=== PATIENT | male | born 1990 ===

== ENCOUNTER 2024-12-01 04:07 | Emergency (ER) | payer MEDICAID, SELFPAY ==
[2024-12-01 04:17] VITALS: BP 120/64; BP 140/72; PULSE 74; PULSE 75; RESP 28; TEMP 36.3; O2SAT 95; O2SAT 96; BMI 27.2
--- NOTE | 2024-12-01 04:50 | PC.NURSE ---
Pt asleep and snoring on arrival. Pt woke when attempting to get bloodwork, unable to give name and started crying and then went back to sleep.
--- NOTE | 2024-12-01 05:49 | PC.NURSE ---
This RN attempted to draw labwork x 2 and another RN attempted x2 to draw lab work unsuccessfully.
--- NOTE | 2024-12-01 06:40 | PC.NURSE ---
Security to bedside to search patient. Pt very tearful upon waking and then went right back to sleep.
[2024-12-01 06:48] VITALS: BP 96/41; PULSE 56; RESP 18; TEMP 36.2; O2SAT 97
--- NOTE | 2024-12-01 07:10 | PC.NURSE ---
Unable to complete CIWA as pt is uncooperative, not answering questions or pt is crying and unable to understand answers.
--- NOTE | 2024-12-01 07:22 | ED_ITS ---
HPI - Alcohol General Chief Complaint: ETOH/Substance Use Stated Complaint: ETOH / substance abuse / vomiting Time Seen by Provider: 12/01/24 07:08 History of Present Illness HPI narrative: Patient appears to be a young male found on the side of the street. Was crying when EMS arrived. Had some vomiting earlier. Now is sleeping. Patient refused to answer questions earlier admits to using alcohol. PD found heroin and cocaine in his pocket. Sent to the ED for further evaluation Related Data Allergies Allergy/AdvReac Type Severity Reaction Status Date / Time Unable to Assess Allergy Verified 12/01/24 04:24 Review of Systems 2 Review of Systems: Unable to obtain review of systems [facility] Social History Social History Unable to assess alcohol history related to: Unknown Use of substances other than those prescribed or required for medical reasons: Unknown Advance Directives: No Advance Directives Information Provided: Yes Physical Exam ED Exam Exam: Appearance: Sleeping localizes the pain snoring Eyes: Pupils equal, round and reactive to light. ENT: Pharynx normal. Neck: Normal inspection. Neck supple. No lymph nodes noted. No crepitus CVS: Normal heart rate and rhythm. Pulses normal. Normal S1 and S2 Respiratory: No respiratory distress. Breath sounds normal. No Wheezing. No rales Abdomen: Soft and nontender. No rigidity. No distention. good BS x4 Skin: Skin warm and dry. Normal skin color. Normal skin turgor. Extremities: No lower extremity edema. Neurovascular intact to all extremities. No Lacerations. No Rash Neuro: Sleeping refused to answer questions moving all extremities localizes to pain Vital Signs: Vital Signs - 24 hr 12/01/24 04:17 12/01/24 06:48 Temperature 97.4 F 97.2 F Pulse Rate 74 56 Respiratory Rate 28 H 18 Blood Pressure 120/64 96/41 L Pulse Oximetry 96 97 Oxygen Delivery Method Room Air Room Air BMI result Body Mass Index 27.2 Medical Decision Making Medical Decision Making MDM Narrative: Patient in the morning is now awake alert no distress. He is not suicidal not homicidal. Had a large breakfast ambulated we got him registered. Admits to using heroin and cocaine. Explained to patient that the heroin could be a mixture of multitude of substances. Patient will require follow-up on an outpatient Patient did not want detox at this time. Differential Diagnosis Differential Diagnoses: The differential diagnosis associated with the presentation includes Admission/Observation Consideration of admission/observation: Escalation of care including admission/observation considered Lab Data MDM Lab Attestation statement: I reviewed the patient's lab results. 12/01/24 09:05 12/01/24 09:05 Labs: Lab Results 12/01/24 Range/Units 09:05 WBC 8.7 (4.8-10.8) X10*3/uL RBC 4.65 (4.60-5.80) X10*6/uL Hgb 13.7 L (14.0-18.0) g/dl Hct 38.3 L (42.0-52.0) % MCV 82.4 (80.0-98.0) fL MCH 29.5 (27.0-33.0) pg MCHC 35.8 (31.0-36.0) g/dl RDW 12.2 (11.0-16.0) % Plt Count 236 (160-400) X10*3/uL MPV 10.3 (9.4-12.4) fL Immature Gran % (Auto) 0.5 H (0.0-0.4) % Neut % (Auto) 71.5 (45-73) % Lymph % (Auto) 15.3 L (20-40) % Knox % (Auto) 12.4 H (2-11) % Eos % (Auto) 0.2 (0-4) % Baso % (Auto) 0.1 (0-2) % Lymph # (Auto) 1.3 (1.2-4.9) X10*3/uL Knox # (Auto) 1.1 (0.1-1.2) X10*3/uL Eos # (Auto) 0.0 (0.0-0.4) X10*3/uL Baso # (Auto) 0.0 (0.0-0.2) X10*3/uL Abs Immat Gran (auto) 0.04 H (0.00-0.03) X10*3/uL Absolute Neuts (auto) 6.2 (2.0-8.3) x10*3/uL Absolute Nucleated RBC 0.000 (0.0-0.012) X10*3/uL Nucleated RBC % (auto) 0.0 (0.0-0.2) /100WBC Sodium 138 (135-145) mmol/L Potassium 3.9 (3.3-5.1) mmol/L Chloride 101 (96-108) mmol/L Carbon Dioxide 28 (22-29) mmol/L Anion Gap 13 (12-20) BUN 10 (9-16) mg/dL Creatinine 0.53 (0.5-1.4) mg/dL Estim Creat Clear Calc 209.1 Estimated GFR > 60 Random Glucose 118 H (60-115) mg/dL Calcium 8.1 L (8.4-10.2) mg/dL Total Bilirubin 1.7 H (0.0-1.0) mg/dL AST 270 H (5-37) U/L ALT 151 H (0-40) U/L Alkaline Phosphatase 111 (39-117) U/L Total Protein 7.4 (6.5-8.0) g/dL Albumin 3.8 (3.5-5.0) g/dL Salicylates < 5.0 L (15-30) mg/dL Acetaminophen < 3 (<30) mcg/mL Ethyl Alcohol < 10 mg/dL Social Determinants Patient?s care significantly limited by Social Determinants of Health including: Low income, Alcoholism and drug addiction in family and Problems related to primary support group Discharge Plan Discharge Clinical Impression: Cocaine abuse, Heroin abuse Patient Disposition: Home, Self-Care Instructions: Cocaine Use Disorder (ED), Opioid Use Disorder (ED) Referrals: Physician,Ian J [Primary Care Provider, Medical] Referral Note: Please go to detox Print Language: Turkmen
--- NOTE | 2024-12-01 08:52 | PC.NURSE ---
this nurse took report this morning from sa[facility]ia, pt sleeping, wakes to stimulus, rr equal/non labored- lungs clear/diminished, refusing to divulge his name/, pt difficult stick- provider wishes day shift to attempt again prior to calling phlebotomy. plan of care ongoing
[2024-12-01 09:09] LABS: MANUAL DIFF FLAG NO
[2024-12-01 09:24] LABS: Hematocrit 38.3 % (42.0-52.0); Hemoglobin 13.7 g/dl (14.0-18.0); Imm Gran Abs Auto 0.04 X10*3/uL (0.00-0.03); Imm Gran Pct Auto 0.5 % (0.0-0.4); Lymphocytes Absolute Auto 1.3 X10*3/uL (1.2-4.9); Mean Corpuscular HGB Conc 35.8 g/dl (31.0-36.0); Mean Corpuscular Hemoglobin 29.5 pg (27.0-33.0); Mean Corpuscular Volume 82.4 fL (80.0-98.0); NRBC Abs Auto 0.000 X10*3/uL (0.0-0.012); NRBC Pct Auto 0.0 /100WBC (0.0-0.2); Platelet Count 236 X10*3/uL (160-400); Red Blood Count 4.65 X10*6/uL (4.60-5.80); White Blood Count 8.7 X10*3/uL (4.8-10.8)
[2024-12-01 09:33] LABS: Alanine Aminotransferase 151 U/L (0-40); Albumin Level 3.8 g/dL (3.5-5.0); Alkaline Phosphatase 111 U/L (39-117); Anion Gap 13 (12-20); Aspartate Amino Transferase 270 U/L (5-37); Blood Urea Nitrogen 10 mg/dL (9-16); Calcium 8.1 mg/dL (8.4-10.2); Carbon Dioxide 28 mmol/L (22-29); Chloride 101 mmol/L (96-108); Creatinine Clr Calc Pharmacy 209.1; Estimated Glomerular Filt Rate > 60; Potassium 3.9 mmol/L (3.3-5.1); Sodium 138 mmol/L (135-145); Total Protein 7.4 g/dL (6.5-8.0)
[2024-12-01 09:34] LABS: Acetaminophen LAB < 3 mcg/mL (<30); Salicylate < 5.0 mg/dL (15-30)
[2024-12-01] MEDS: Naloxone HCl Nasal TAKE HOME 4 MG SPRAY 8 MG NOSTRILALT (11:53)
[2024-12-01 12:04] VITALS: BP 134/69; PULSE 96; RESP 18; TEMP 36.8; O2SAT 96
[2024-12-01 12:06] LABS: Cannabinoid Screen Urine Not Detected (Not Detect)
--- NOTE | 2024-12-01 12:07 | PC.NURSE ---
pt given take home narcan
== END 2024-12-01 12:08 | disposition home or self-care (01) ==
PROVIDERS: Emergency Provider Emergency Medicine Emergency Medical Services
DX: F14.10 Cocaine abuse, uncomplicated (principal); F11.10 Opioid abuse, uncomplicated; Z59.6 Low income; Z63.72 Alcoholism and drug addiction in family; Z63.9 Problem related to primary support group, unspecified
CPT/HCPCS: 36415; 80053; 80143; 80179; 80307; 85025; 99284